=== PATIENT | male | born 1935 | race Caucasian/White ===

== ENCOUNTER 2018-07-10 10:02 | Day surgery (SDC) | payer MEDICARE, OTHER ==
[2018-07-07 11:26] VITALS: BMI 25.8
[~2018-07-10 10:02] MED LIST: DEXAMETHASONE SOD PHOSPHATE 4 MG/ML 1 ML VIAL IV ONE; FAMOTIDINE 20 MG/2 ML VIAL IV ONE; LACTATED RINGERS 1,000 ML IV SCH; LIDOCAINE 1% 20 ML VIAL (10MG/ML) FOR IV START INTRADERMA PRN; MIDAZOLAM 2 MG/2 ML VIAL IV PRN; ONDANSETRON 4 MG/2 ML VIAL IVP ONE
[2018-07-10 10:49] VITALS: RESP 16; TEMP 97.6
[2018-07-10] MEDS ORDERED: ONDANSETRON 4 MG/2 ML VIAL IVP ONE (11:15)
[2018-07-10] MEDS ORDERED: DEXAMETHASONE SOD PHOSPHATE 10 MG/ML 1 ML VIAL IV ONE (11:15)
[2018-07-10] MEDS ORDERED: PROPOFOL 10 MG/ML 20 ML VIAL IV ONE (13:11)
[2018-07-10] MEDS ORDERED: MIDAZOLAM 2 MG/2 ML VIAL ONE (13:11)
[2018-07-10] MEDS ORDERED: diphenhydrAMINE 50 MG/ML 1 ML VIAL ONE (13:11)
[2018-07-10] MEDS ORDERED: fentaNYL (PF) 50 MCG/ML 2 ML AMP ONE (13:11)
[2018-07-10] MEDS: CLINDAMYCIN 600 MG in DEXTROSE 5% IN WATER 50 ML IVPB ONE ×4 (13:17→14:17)
[2018-07-10] MEDS ORDERED: BUPIVACAIN-EPI 0.5%-1:200,000 30 ML VIAL SQ ONE ×2 (13:26)
[2018-07-10] MEDS ORDERED: LIDOCAINE 1%-EPI 1:100,000 20 ML VIAL SQ ONE (13:26)
[2018-07-10] MEDS ORDERED: LACTATED RINGERS 1,000 ML IV ONE (14:17)
--- NOTE | 2018-07-10 14:51 | P.OP ---
Date of Procedure: 07/10/18 Preoperative Diagnosis: 1.6 cm nasal tip lesion Postoperative Diagnosis: same Procedure(s) Performed: Excision of a 1.6 cm x 1 cm nasal tip lesion with bilateral advancement flap closure with secondary defect measuring 3.2 x 2 cm Anesthesia: [id number] Surgeon: Orlando Cristobal Estimated Blood Loss (ml): 5 Pathology: other (Frozen section revealed actinic keratosis awaiting permanent section margins are clean) Condition: stable Disposition: PACU Indications for Procedure: Patient has an ulcerative lesion of the nasal tip surgical removal for biopsy purposes is recommended. Consent was obtained and all questions were answered Operative Findings: Frozen section shows that the margins are negative, this lesion appears to be a severe actinic keratoses Description of Procedure: This patient was taken to the operative room IV sedation was administered and the face was sterilely prepped and draped in usual fashion. This nasal tip lesion was marked with a marking pen and excised with a 15 blade after anesthetization. After this lesion was marked a 15 blade was used to excise this area with the delicate plastic scissors Brown-Abigailon forceps and complete removal was obtained was marked for orientation sent for frozen section and margins came back negative for tumor the lesion appeared to be a severe case of actinic keratoses. We did obtain complete hemostasis with cauterization. We did extensive undermining all directions and developed bilateral advancement flaps laterally. We rotated the flaps into position the secondary defect measured 3.2 x 2 cm. We closest deeply with use of a 4-0 Monocryl and the skin was closed with a 6-0 Prolene in a interrupted type fashion. Steri-Strips were applied. The patient tolerated this well and follow-up is scheduled for 1 week.
[2018-07-10 15:02] VITALS: BP 142/69; PULSE 61
== END 2018-07-10 15:32 | disposition home or self-care (01) ==
LOC: OR 10:02
PROVIDERS: ATTEND Otolaryngology
DX: L73.8 Other specified follicular disorders (principal); L56.8 Other specified acute skin changes due to ultraviolet radiation; K21.9 Gastro-esophageal reflux disease without esophagitis; M19.90 Unspecified osteoarthritis, unspecified site; J45.909 Unspecified asthma, uncomplicated; R01.1 Cardiac murmur, unspecified; J44.9 Chronic obstructive pulmonary disease, unspecified; I11.9 Hypertensive heart disease without heart failure; E78.5 Hyperlipidemia, unspecified; G47.33 Obstructive sleep apnea (adult) (pediatric); E78.00 Pure hypercholesterolemia, unspecified; Z95.2 Presence of prosthetic heart valve; J98.4 Other disorders of lung; Z91.09 Other allergy status, other than to drugs and biological substances; Z79.2 Long term (current) use of antibiotics; Z79.01 Long term (current) use of anticoagulants; Z79.82 Long term (current) use of aspirin; Z79.891 Long term (current) use of opiate analgesic; Z79.51 Long term (current) use of inhaled steroids; Z79.52 Long term (current) use of systemic steroids; Z79.899 Other long term (current) drug therapy; Z88.1 Allergy status to other antibiotic agents; Z88.2 Allergy status to sulfonamides
CPT/HCPCS: 88305; 88331; 14060; J2250; J1200; J1100; J2405; J3010; J2704